=== PATIENT | female | born 2005 | race Caucasian/White ===

== ENCOUNTER → 2023-08-15 16:53 | Outpatient (REF) | payer BC, SELFPAY | LOC: RAD 16:53 | PROVIDERS: ATTENDING PHYSICIAN Physician Assistant Medical | DX: R22.9 Localized swelling, mass and lump, unspecified (principal) | CPT/HCPCS: 76882 ==

== ENCOUNTER 2025-05-08 12:52 | Emergency (ER) | payer BC, SELFPAY ==
[2025-05-08 12:56] VITALS: BP 122/79; BMI 22.3
--- NOTE | 2025-05-08 13:14 | ED.GENMED ---
History of Present Illness
General
Chief Complaint: Crisis Evaluation
Source: patient and police
Exam Limitations: none
Time Seen by Provider: 05/08/25 13:09
Nursing documentation reviewed up to this point in time: agreed with
History of Present Illness
History of Present Illness:
20-year-old female with listed history of anxiety but no reported medical history presents to the emergency department in police custody for bizarre behavior. According to police report patient lives in an apartment building and over the past few
days has been taking paintings and furnishing items from around the apartment building and putting them on the floor in the lobby. It sounds like she did this again today and was asked to stop and put things back but refused and police were called.
Police brought her into the emergency room for psychiatric assessment; it sounds like she was brought in to another hospital for psychiatric assessment a few days ago after parents attempted to file a 302 for bizarre behavior. According to report
patient has been spending erratically and exhibiting bizarre behaviors but has not been violent. Apparently 302 from a few days ago was not upheld by delegate. Today police filed a backup 302 although patient is agreeable to treatment.
When I asked the patient about these events she says that she does not recall any of it. When I asked her why she was sitting in the lobby of her building she says that she was reading and that she lives there and she is allowed to be there. She
says that 'some lesly I do not know' called the police to the scene and when the police got there they asked her to leave the lobby and she refused and was brought into the hospital. I asked her about the 302 filed by her parents a few days ago she
says 'I do not know about that, I do not talk to my parents.' When I ask her about why the police are filing for involuntary psychiatric hold she says 'I do not know but I will just go, I could use a vacation.' When I ask her specifically about
being suicidal or homicidal she denies this. She denies using drugs or alcohol.
Past History
Social History
Tobacco: Non-smoker
Alcohol: None
Drug: None
Review of Systems
Review of Systems
All Other Systems: ROS reviewed and negative except as documented in HPI and ROS
Psychiatric: Reports other (Bizarre behavior); Denies depression or suicidal
Phy Exam
Physical Exam
Physical Exam:
General: Well appearing and non-toxic
HEENT: protecting airway
Neck: appears supple
CV: No evidence of cyanosis
Resp: No accessory muscle use
Abd: Non-distended
Extremities: No deformities
Neuro: Alert
Psych: Bizarre affect, 'fine' mood; she does not appear to be responding to internal stimuli, she has poor insight into the situation and clearly exhibiting poor judgment
Skin: Intact
Scores
Heart Failure Risk
Heart Failure Risk Score: Not Applicable
Heart Score for Chest Pain Patients
STEMI patient?: Not applicable
Withdrawal Assessment of Alcohol
Withdrawal Assessment Completed?: Not applicable
Course
Orders/Labs/Results
Orders:
Orders
05/08/25 13:07
Urine Drug Abuse Screen Urgent
Date Specimen was Collected: 05/08/25
Time Specimen was Collected: 13:07
05/08/25 13:09
Crisis Consult Routine
Reason for Consult: 302
05/08/25 13:10
HCG, Urine Qualitative Screen Urgent
Test Result ONCE
Vital Signs
Initial and Last Documented VS:
Initial Vital Signs
Temp Pulse Resp BP Pulse Ox
36.9 C 72 20 122/79 99
05/08/25 12:56 05/08/25 12:56 05/08/25 12:56 05/08/25 12:56 05/08/25 12:56
Last Documented Vital Signs
Temp Pulse Resp BP Pulse Ox
36.9 C 72 20 122/79 99
05/08/25 12:56 05/08/25 12:56 05/08/25 12:56 05/08/25 12:56 05/08/25 13:16
MDM/Problems Addressed
Differential Diagnosis Includes:
Sandra, psychosis, behavioral disorder, drug/alcohol use
MDM/Problems Addressed:
20-year-old female presents to the ER in police custody for bizarre behavior for the past few days. 302 filed by parents a few days ago but apparently not upheld. Police filed back at 302 but today patient is agreeable to psychiatric treatment.
Exhibiting some bizarre behavior here and poor insight into the situation. Does not seem to be violent in any way here. Plan to check UDS, hCG. Case discussed with crisis team for assessment.
*Pulse Oximetry
SaO2: 99
Oxygen Mode of Delivery: Room air
Patient hypoxic: no (99%)
*Critical Care Note
Total Time (30-74mins, 75-104mins- exclusive of procedures): Not Applicable
Data Reviewed
Source: patient, police and other (crisis staff (who took 302 report from parents a few days ago))
Patient Management
Discussion with other providers: Other (Discussed with crisis team)
ED Attending Note
-
Portions of this chart may have been created with voice recognition software.� Occasional wrong word or��sound alike� substitutions may have occurred due to the inherent limitations of voice recognition software.
Discharge Plan
Departure
Patient Disposition: Psych Facility
Date of Disposition: 05/08/25
Time of Disposition: 13:22
Discharge Problem:
Bizarre behavior
Prescriptions:
No Action
ibuprofen 600 MG tablet
600 mg PO Q6 PRN (Reason: pain) Qty: 20 0RF
Interventions
Interventions:
*Risk Screen - Suicide Last Done: 05/08/25 12:56
*General Assessment Last Done: 05/08/25 12:56
*Neglect/Abuse Screening Last Done: 05/08/25 12:56
*ED- Fall Risk Assessment Last Done: 05/08/25 12:56
*ED COVID-19 Vaccine History Last Done: 05/08/25 12:56
*ED Influenza Vaccine History Last Done: 05/08/25 12:56
ED-Psychological Assessment Last Done: 05/08/25 12:56
Discharge Date and Time
Print Language: ITALIAN
[2025-05-08 20:03] LABS: HCG, Urine Qualitative Screen Negative
== END 2025-05-08 23:26 ==
LOC: EMR 12:52
PROVIDERS: Emergency Medicine; EMERGENCY PHYSICIAN Emergency Medicine; FAMILY PHYSICIAN Nurse Practitioner Adult Health
DX: R46.2 Strange and inexplicable behavior (principal)
CPT/HCPCS: 99285; 80306; 81025